=== PATIENT | male | born 1990 | race African-American/Black ===

== ENCOUNTER 2018-02-27 16:36 | Emergency (ER) | payer OTHER ==
[2018-02-27] MEDS: OXYCODONE/ACETAMINOPHEN (5/325) TAB PO (17:30)
[2018-02-27] MEDS: KETOROLAC 30 MG INJ IM (17:30)
== END 2018-02-27 20:00 | disposition home or self-care (01) ==
LOC: E/R 16:36
DX: G89.18 Other acute postprocedural pain (principal)
CPT/HCPCS: 29125; 96372; 99284-25

== ENCOUNTER 2018-02-27 22:00 | Emergency (ER) | payer SELFPAY, OTHER | END 2018-02-27 23:43 | disposition left against medical advice (07) | LOC: E/R 22:00 | DX: Z53.21 Procedure and treatment not carried out due to patient leaving prior to being seen by health care provider (principal) ==